=== PATIENT | female | born 1975 | race Caucasian/White ===

== ENCOUNTER 2020-09-03 08:33 | Outpatient (REF) | payer OTHER, SELFPAY ==
[2020-09-03 12:00] LABS: Hematocrit 38.4 % (37-47); Hemoglobin 12.4 g/dl (12.0-16.0); Mean Corpuscular HGB Conc 32.3 g/dl (31.0-35.0); Mean Corpuscular Hemoglobin 29.7 pg (27.0-33.0); Mean Corpuscular Volume 91.9 fL (80-98); Mean Platelet Volume 11.5 fL (9.4-12.3); Platelet Count 233 X10*3/uL (160-400); Red Blood Count 4.18 X10*6/uL (4.20-5.50); Red Cell Distribution Width 12.8 % (11.0-16.0); White Blood Count 4.5 X10*3/uL (4.8-10.8)
[2020-09-03 12:06] LABS: Glucose Urine UA NEG (NEG); Leukocyte Esterase Urine NEG (NEG); Nitrite Urine NEG (NEG); PH 6.5 (5.0-8.0); Urine Blood NEG (NEG); Urine Ketones NEG (NEG); Urine Protein NEG (NEG-TRACE)
[2020-09-03 12:09] LABS: Appearance Urine CLEAR; Color Urine YELLOW
[2020-09-03 12:39] LABS: Alanine Aminotransferase 13 U/L (0-31); Alkaline Phosphatase 47 U/L (39-117); Anion Gap 11 (12-20); Aspartate Amino Transferase 20 U/L (5-31); Bilirubin Total 0.6 mg/dL (0.0-1.0); Blood Urea Nitrogen 16 mg/dL (9-16); Calcium 8.9 mg/dL (8.4-10.2); Carbon Dioxide 26 mmol/L (22-29); Chloride 104 mmol/L (96-108); Cholesterol 228 mg/dL; Estimated Glomerular Filt Rate > 60; Glucose Fasting 93 mg/dL (60-99); HDL Cholesterol 76 mg/dL; LDL Cholesterol Calculated 136 mg/dl; Potassium 3.9 mmol/l (3.3-5.1); Sodium 137 mmol/L (135-145); Triglycerides 82 mg/dL
[2020-09-03 12:46] LABS: TSH reflex Free T4 0.66 mIU/mL (0.32-4.0)
[2020-09-05 08:23] LABS: Follicle Stimulating Hormone 6.3 mIU/mL; Prolactin 11.2 ng/mL
== END 2020-09-03 08:34 | disposition home or self-care (01) ==
LOC: HO.HMGCLDS 08:33
PROVIDERS: PCP Internal Medicine; Visit Provider Nurse Practitioner Adult Health
DX: N92.6 Irregular menstruation, unspecified (principal); R05 Cough; E78.2 Mixed hyperlipidemia
CPT/HCPCS: 36415; 80053; 80061; 81003; 83001; 84146; 84443; 85027

== ENCOUNTER 2021-10-16 13:20 | Outpatient (REF) | payer OTHER, SELFPAY ==
[2021-10-16 16:26] LABS: Hematocrit 37.7 % (37.0-47.0); Hemoglobin 12.2 g/dl (12.0-16.0); Mean Corpuscular HGB Conc 32.4 g/dl (31.0-35.0); Mean Corpuscular Hemoglobin 29.5 pg (27.0-33.0); Mean Corpuscular Volume 91.1 fL (80.0-98.0); Mean Platelet Volume 11.7 fL (9.4-12.3); Platelet Count 248 X10*3/uL (160-400); Red Blood Count 4.14 X10*6/uL (4.20-5.50); Red Cell Distribution Width 12.5 % (11.0-16.0); White Blood Count 5.1 X10*3/uL (4.8-10.8)
[2021-10-16 16:42] LABS: Appearance Urine CLEAR; Color Urine YELLOW; Glucose Urine UA NEG (NEG); Leukocyte Esterase Urine NEG (NEG); Nitrite Urine NEG (NEG); Urine Blood NEG (NEG); Urine Ketones 5 MG/DL (NEG); Urine Protein NEG (NEG-TRACE)
[2021-10-16 16:57] LABS: Alanine Aminotransferase 10 U/L (0-31); Albumin Level 4.4 g/dL (3.5-5.0); Alkaline Phosphatase 60 U/L (39-117); Anion Gap 12 (12-20); Aspartate Amino Transferase 21 U/L (5-31); Bilirubin Total 0.5 mg/dL (0.0-1.0); Blood Urea Nitrogen 17 mg/dL (9-16); Calcium 10.1 mg/dL (8.4-10.2); Carbon Dioxide 29 mmol/L (22-29); Chloride 103 mmol/L (96-108); Cholesterol 259 mg/dL; Estimated Glomerular Filt Rate > 60; Glucose Fasting 95 mg/dL (60-99); HDL Cholesterol 86 mg/dL; LDL Cholesterol Calculated 162 mg/dl; Potassium 4.3 mmol/L (3.3-5.1); Sodium 140 mmol/L (135-145); Total Protein 7.8 g/dL (6.5-8.0); Triglycerides 58 mg/dL
[2021-10-16 16:58] LABS: Bacteria Urine TRACE /LPF; RBC Urine 0-2 /HPF (0); Squamous Epithelial Cell Urine TRACE /LPF
[2021-10-16 16:59] LABS: WBC Urine 0-2 /HPF (0-4)
[2021-10-16 17:11] LABS: TSH reflex Free T4 0.59 uIU/mL (0.32-4.0)
== END 2021-10-16 13:21 | disposition home or self-care (01) ==
LOC: HO.HMGCLDS 13:20
PROVIDERS: PCP Internal Medicine; Visit Provider Internal Medicine
DX: Z00.00 Encounter for general adult medical examination without abnormal findings (principal)
CPT/HCPCS: 36415; 80053; 80061; 81001; 84443; 85027

== ENCOUNTER 2021-10-29 15:14 | Outpatient (REF) | payer OTHER, SELFPAY ==
--- NOTE | ~2021-10-29 | US_ITS ---
EXAMINATION: US THYROID CLINICAL INFORMATION: Nontoxic multinodular goiter. COMPARISON: CT soft tissue neck 02/18/2019. Ultrasound-guided thyroid biopsy dated 09/08/2018. Ultrasound soft tissue head/neck thyroid dated 03/23/2018. TECHNIQUE: Linear and curved transducer grayscale and color Doppler examination with attention to the region of the thyroid. FINDINGS: SIZE: Measurements of the thyroid lobes and nodules are given in sagittal, anteroposterior and transverse dimensions respectively. Right Thyroid Lobe: 6.1 x 2.0 x 2.2 cm, volume 14.0 mL. Previously 5.5 x 2.4 x 1.9 cm, volume 13.1 mL. Parenchyma: The gland echotexture is homogeneous. Thyroid vascularity is increased. Left Thyroid Lobe: 7.3 x 2.5 x 2.7 cm, volume 25.8 mL. Previously 5.9 x 2.5 x 2.9 cm, volume 22.3 mL. Parenchyma: The gland echotexture is homogeneous. Thyroid vascularity is increased. Isthmus: 0.7 cm in maximum AP dimension. Previously 0.6 cm. Estimated total number of nodules greater than or equal to 1 cm: 2. Security Developer nodules are described as follows: 1. Location: Right inferior/isthmus. Size: 3.0 x 1.6 x 2.4 cm, volume 6.07 mL. Previously: 2.7 x 1.7 x 2.2 cm, volume 5.28 mL. Nodule characteristics: Composition: Solid (2). Echogenicity: Isoechoic (1). Shape: Not taller than wide (0). Margins: Irregular (2). Echogenic Foci: None (0). ACR TI-RADS total points: 5 ACR TI-RADS category: 4 Significant change in size (>/= 20% in 2 dimensions and minimal increase of 2 mm or 50% or greater increase in volume): No Change in features: No Change in ACR TI-RADS risk category: No 2. Location: Left inferior/isthmus. Size: 3.9 x 2.0 x 2.8 cm, volume 11.4 mL. Previously: 3.4 x 1.7 x 2.2 cm, volume 6.65 mL. Nodule characteristics: Composition: Solid (2). Echogenicity: Isoechoic (1). Shape: Not taller than wide (0). Margins: Irregular (2). Echogenic Foci: None (0). ACR TI-RADS total points: 5 ACR TI-RADS category: 4 Significant change in size (>/= 20% in 2 dimensions and minimal increase of 2 mm or 50% or greater increase in volume): Yes Change in features: No Change in ACR TI-RADS risk category: No NODES: No lymphadenopathy is seen in the tissue surrounding the thyroid gland. US/US thyroid IMPRESSION: Enlarged hypervascular thyroid gland. There is interval increase in size in the left isthmus/lower pole nodule. The right isthmus/lower pole nodule does not appear appreciably changed. ACR TI-RADS RECOMMENDATION REFERENCE: Ultrasound-guided fine-needle aspiration, followup ultrasound, no further follow up. * TR1 (0 point) and TR 2 (2 points): No FNA or follow up * TR3 (3 points): FNA if more than or equal to 2.5 cm in maximum dimension, followup ultrasound in 1, 3 and 5 years if 1.5 to 2.4 cm in maximum dimension. * TR4 (4-6 points): FNA if more than or equal to 1.5 cm in maximum dimension, followup ultrasound in 1, 2, 3 and 5 years if 1 to 1.4 cm in maximum dimension. * TR5 (more than or equal to 7 points): FNA if more than or equal to 1 cm in maximum dimension, followup ultrasound every year for 5 years if 0.5 to 0.9 cm in maximum dimension. * TR3, TR4 or TR5 nodules that are below the size threshold for follow up receive no follow up.
== END 2021-10-29 15:15 | disposition home or self-care (01) ==
LOC: HO.HMGCX 15:14
PROVIDERS: PCP Internal Medicine; Visit Provider Internal Medicine
DX: E04.2 Nontoxic multinodular goiter (principal)
CPT/HCPCS: 76536

== ENCOUNTER → 2023-03-10 12:43 | Outpatient (BNVA) | payer OTHER, SELFPAY | PROVIDERS: PCP Internal Medicine; Visit Provider Internal Medicine Endocrinology, Diabetes & Metabolism ==

== ENCOUNTER 2023-03-16 14:15 | Outpatient (REF) | payer OTHER, SELFPAY ==
--- NOTE | ~2023-03-16 | US_ITS ---
EXAMINATION: US THYROID CLINICAL INFORMATION: Nontoxic multinodular goiter. COMPARISON: Ultrasound thyroid 10/29/2021 and 03/23/2018. CT soft tissue neck with contrast 02/02/2019. US-guided thyroid biopsy 09/08/2018 and 03/11/2017. TECHNIQUE: Linear transducer grayscale and color Doppler examination with attention to the region of the thyroid. FINDINGS: SIZE: Measurements of the thyroid lobes and nodules are given in sagittal, anteroposterior and transverse dimensions respectively. Right Thyroid Lobe: 6.2 x 2.0 x 2.4 cm, volume 15.6 mL. Previously 6.1 x 2.0 x 2.2 cm, volume 14.0 mL. Parenchyma: The gland echotexture is homogeneous. Thyroid vascularity is increased. Left Thyroid Lobe: 6.9 x 2.6 x 2.9 cm, volume 27.2 mL. Previously 7.3 x 2.5 x 2.7 cm, volume 25.8 mL. Parenchyma: The gland echotexture is homogeneous. Thyroid vascularity is increased. Isthmus: 1.1 cm in maximum AP dimension. Previously 0.7 cm. Estimated total number of nodules greater than or equal to 1 cm: 2. Electrical Wiring Lineman nodules are described as follows: 1. Location: Right isthmus. Size: 3.1 x 1.7 x 2.4 cm, volume 6.6 mL. Previously: 3.0 x 1.6 x 2.4 cm, volume 6.07 mL. Nodule characteristics: Composition: Solid (2). Echogenicity: Isoechoic (1). Shape: Not taller than wide (0). Margins: Irregular (2). Echogenic Foci: None (0). ACR TI-RADS total points: 5 Previous: 5 ACR TI-RADS category: 4 Previous: 4 Significant change in size (>/= 20% in 2 dimensions and minimal increase of 2 mm or 50% or greater increase in volume): Not Change in features: Not Change in ACR TI-RADS risk category: Not 2. Location: Left inferior. Size: 3.8 x 2.0 x 2.9 cm, volume 11.3 mL. Previously: 3.9 x 2.0 x 2.8 cm, volume 11.4 mL. Nodule characteristics: Composition: Solid (2). Echogenicity: Isoechoic (1). Shape: Not taller than wide (0). Margins: Irregular (2). Echogenic Foci: Macrocalcifications (1). ACR TI-RADS total points: 6 Previous: 5 ACR TI-RADS category: 4 Previous: 4 Significant change in size (>/= 20% in 2 dimensions and minimal increase of 2 mm or 50% or greater increase in volume): Not Change in features: Not Change in ACR TI-RADS risk category: Not NODES: No lymphadenopathy is seen in the tissue surrounding the thyroid gland. US/US thyroid IMPRESSION: Multinodular goiter. No significant interval change
== END 2023-03-16 14:16 | disposition home or self-care (01) ==
LOC: HO.HMGCX 14:15
PROVIDERS: PCP Internal Medicine; Visit Provider Internal Medicine
DX: E04.2 Nontoxic multinodular goiter (principal)
CPT/HCPCS: 76536

== ENCOUNTER 2023-05-10 06:18 | Outpatient (REF) | payer OTHER, SELFPAY ==
[2023-05-10 12:56] LABS: Free T4 (Free Thyroxine) 0.73 ng/dL (0.71-1.85); Thyroid Stimulating Hormone 1.04 uIU/mL (0.32-4.0)
== END 2023-05-10 06:19 | disposition home or self-care (01) ==
LOC: HO.HMGCLDS 06:18
PROVIDERS: PCP Internal Medicine; Visit Provider Internal Medicine Endocrinology, Diabetes & Metabolism
DX: E04.2 Nontoxic multinodular goiter (principal)
CPT/HCPCS: 36415; 84439; 84443

== ENCOUNTER 2023-08-05 13:31 | Outpatient (AMB) | payer OTHER, SELFPAY ==
[2023-08-05 14:01] VITALS: BP 134/70; PULSE 85; O2SAT 99; BMI 24.7
--- NOTE | 2023-08-05 14:01 | MHC.PC.OV ---
Vital Signs 08/05/23 14:01 Height 5 ft 2 in Weight 135 lb BMI 24.7 BP 134/70 Blood Pressure Location Lt brachial Position Sitting Pulse 85 Pulse Source Pulse Oximeter Pulse Oximetry (%) 99 Oxygen Delivery Method Room Air Intake Visit Reasons: Physical Intake Note: Pt is here today for PE. Allergies No Known Allergies [No Known Allergies*] Allergy (Unverified 08/05/23 14:04) Nickel Allergy (Unknown, Uncoded 08/05/23 14:04) itchy Medication List - Last Reconciled 08/05/23 by Jen Nevarez MD rizatriptan (Maxalt-TRAM OPERATOR) take 1 tab at onset of headache; if no relief may repeat 1 tab after at least 2 hrs; max = 3 tabs/24 hr PO sertraline 25 mg PO DAILY Tobacco use date assessed: 08/05/23 Dental Screening Dental Screen Date: 08/05/23 Did you have a dental visit in the last 12 months?: Yes Did you have a dental problem in the last 6 months where you did not have access to dental care?: No Was dental information given to patient?: Patient has dentist HPI Physical HPI Details Pt presents for PE. Pt c/o chronic bilateral hand pain and tingling sensation mainly in the middle fingers worse at night for 3 weeks. Pt tried acupuncture with some relief. 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 Patient denies any weakness in hand ultrasound technol. [facility] Medical History Hyperlipidemia Multiple thyroid nodules Migraine Normal pelvic exam Annual physical exam Surgical History No history of previous surgery Family History Mother Family history of thyroid problem Father Heart problem Sister Ming's disease Other Substance use disorder Social History Housing: House Patient Tobacco Use Status: Never used Tobacco e-Cigarette/Vaping Use: Never Used Current occupational status: employed Cognitive needs: No Hearing needs: No Vision needs: Yes Questionnaire Thrive Questionnaire Date Thrive assessed: 10/16/21 I am a: Patient What is your living situation today?: I choose not to answer this question Within the past 12 months, did the food you bought not last and you didn't have the money to get more?: I choose not to answer this question Within the past 12 months, did you worry whether your food would run out before you got money to buy more?: I choose not to answer this question Please select the resources that you would like help with: None AUDIT C Alcohol Use Questionnaire (AUDIT-C) 1. How often do you have a drink containing alcohol?: Never 3. How often do you have six or more drinks on one occasion?: Never Total Score: 0 LEONARDO-7 AMB Questionnaire LEONARDO-7 Date LEONARDO - 7 assessed: 10/16/21 Feeling nervous, anxious, or on edge: 0 = Not at all Not being able to stop or control worryin = Not at all Worrying too much about different things: 0 = Not at all Trouble relaxin = Not at all Being so restless that it is hard to sit still: 0 = Not at all Becoming easily annoyed or irritable: 0 = Not at all Feeling afraid as if something awful might happen: 0 = Not at all Total LEONARDO-7 score (0-4 normal; 5-9 mild; 10-14 moderate; 15-21 severe): 0 Source: Developed by Drs. Sanjeev Garcia, Luz Maria Alfred, Norbert Overton and colleagues, with an educational saumya from [employer]. Review of Systems Const All systems reviewed & are unremarkable except as noted in HPI and below Reports no additional complaints Eyes Reports no additional complaints ENT Reports no additional complaints Card Reports no additional complaints Resp Reports no additional complaints GI Reports no additional complaints Reports no additional complaints Physical exam (Primary Care) Vital Signs: Last Vital Signs Pulse 85 08/05/23 14:01 BP 134/70 08/05/23 14:01 Pulse Ox 99 08/05/23 14:01 Oxygen Delivery Method Room Air 08/05/23 14:01 BMI result Body Mass Index 24.7 Tobacco/Smoking Status: Tobacco use Status Tobacco use date assessed 08/05/23 08/05/23 14:08 Patient Tobacco Use Status Never used Tobacco 08/05/23 14:08 e-Cigarette/Vaping Use Never Used 08/05/23 14:08 Thrive Assessment: Date of Thrive Assessment Date Thrive assessed 10/16/21 08/05/23 14:08 Const General: no acute distress HENMT Head: Yes normal to inspection Ears: hearing grossly normal bilaterally General nose exam: Normal external nose present Mouth: Normal oral and palatal mucosa present Throat: Yes posterior oropharynx normal Eyes General: appearance normal, both eyes and all related structures Neck Neck: Yes no lymphadenopathy and Yes supple Resp Effort & Inspection: normal respiratory effort Auscultation: clear to auscultation bilaterally Cardio Rhythm: regular rhythm Heart sounds: S1 normal heart sound present and S2 normal heart sound present GI Inspection: Yes normal to inspection Palpation (GI): Soft to palpation Percussion: Yes normal to percussion Auscultation: normal bowel sounds Assessment and Plan Assessment & Plan (1) Bilateral carpal tunnel syndrome: Code(s): G56.03 - Carpal tunnel syndrome, bilateral upper limbs Plan: For bilateral hand and wrist pain x-rays will be obtained patient will be referred for EMG to evaluate for carpal tunnel. Meloxicam 50 mg for 10 days prescribed patient was advised to wear compression wrist support (2) Hyperlipidemia: Code(s): E78.5 - Hyperlipidemia, unspecified Plan: Low-cholesterol diet discussed, pt will return for fasting labs. (3) Annual physical exam: Code(s): Z00.00 - Encounter for general adult medical examination without abnormal findings Plan: Well-balanced diet regular physical activity discussed with the patient .she will schedule mammogram and is up-to-date with the Pap smear by medical billing service. Patient will be referred to GI for colonoscopy Orders: Orders Complete Blood Count Auto Diff Today E78.5 - Hyperlipidemia, unspecified, G56.03 - Carpal tunnel syndrome, bilateral upper limbs, Z00.00 - Encounter for general adult medical examination without abnormal findings Comprehensive [place]. Panel Fast Today E78.5 - Hyperlipidemia, unspecified, G56.03 - Carpal tunnel syndrome, bilateral upper limbs, Z00.00 - Encounter for general adult medical examination without abnormal findings Vitamin D 25-OH Total Today E78.5 - Hyperlipidemia, unspecified, G56.03 - Carpal tunnel syndrome, bilateral upper limbs, Z00.00 - Encounter for general adult medical examination without abnormal findings Vitamin B12 and Folate Today E78.5 - Hyperlipidemia, unspecified, G56.03 - Carpal tunnel syndrome, bilateral upper limbs, Z00.00 - Encounter for general adult medical examination without abnormal findings XR hand wrist LT Today G56.03 - Carpal tunnel syndrome, bilateral upper limbs Lipid Panel Today E78.5 - Hyperlipidemia, unspecified, G56.03 - Carpal tunnel syndrome, bilateral upper limbs, Z00.00 - Encounter for general adult medical examination without abnormal findings TSH reflex Free T4 Today E78.5 - Hyperlipidemia, unspecified, G56.03 - Carpal tunnel syndrome, bilateral upper limbs, Z00.00 - Encounter for general adult medical examination without abnormal findings NE nerve conduction velocity Today E78.5 - Hyperlipidemia, unspecified, G56.03 - Carpal tunnel syndrome, bilateral upper limbs, Z00.00 - Encounter for general adult medical examination without abnormal findings XR hand wrist RT Today G56.03 - Carpal tunnel syndrome, bilateral upper limbs Referrals Gastroenterology Referral Z00.00 - Encounter for general adult medical examination without abnormal findings Medications: New nystatin 1 appl topical BID 30 grams 4RF meloxicam 15 mg PO DAILY 30 tabs 0RF Refilled rizatriptan (Maxalt-TRAM OPERATOR) take 1 tab at onset of headache; if no relief may repeat 1 tab after at least 2 hrs; max = 3 tabs/24 hr PO 20 tabs 2RF sertraline 25 mg PO DAILY 90 tabs 3RF Coding Level of Care Code Est Pt Prev Care 40-64y(77839) Diagnoses Bilateral carpal tunnel syndrome G56.03 Hyperlipidemia E78.5 Annual physical exam Z00.00
== END 2023-08-05 15:15 | disposition home or self-care (01) ==
PROVIDERS: PCP Internal Medicine; Visit Provider Internal Medicine
DX: G56.03 Carpal tunnel syndrome, bilateral upper limbs (principal); E78.5 Hyperlipidemia, unspecified; Z00.00 Encounter for general adult medical examination without abnormal findings
CPT/HCPCS: 99396

== ENCOUNTER 2023-08-05 14:59 | Outpatient (REF) | payer OTHER, SELFPAY ==
--- NOTE | ~2023-08-05 | XR_ITS ---
EXAMINATION: XR HANDS, BILATERAL CLINICAL INFORMATION: Carpal tunnel syndrome bilateral upper lobes. COMPARISON: None available. TECHNIQUE: 3 views of each hand. FINDINGS: LEFT HAND: Moderate degenerative changes in the 1st carpometacarpal joint with joint space narrowing and hypertrophic change. Bone mineralization is normal. Alignment preserved. RIGHT HAND: Moderate degenerative changes in the 1st carpometacarpal joint with joint space narrowing and hypertrophic change. Bone mineralization is normal. Alignment preserved. Calcifications in the soft tissues at the dorsal distal aspects of the right 3rd and 4th middle phalanges. XR/XR hand wrist LT IMPRESSION: Moderate degenerative changes in the bilateral 1st carpometacarpal joints. Recommend followup imaging in 10-14 days if fracture is suspected.
--- NOTE | ~2023-08-05 | XR_ITS ---
EXAMINATION: XR HANDS, BILATERAL CLINICAL INFORMATION: Carpal tunnel syndrome bilateral upper lobes. COMPARISON: None available. TECHNIQUE: 3 views of each hand. FINDINGS: LEFT HAND: Moderate degenerative changes in the 1st carpometacarpal joint with joint space narrowing and hypertrophic change. Bone mineralization is normal. Alignment preserved. RIGHT HAND: Moderate degenerative changes in the 1st carpometacarpal joint with joint space narrowing and hypertrophic change. Bone mineralization is normal. Alignment preserved. Calcifications in the soft tissues at the dorsal distal aspects of the right 3rd and 4th middle phalanges. XR/XR hand wrist RT IMPRESSION: Moderate degenerative changes in the bilateral 1st carpometacarpal joints. Recommend followup imaging in 10-14 days if fracture is suspected.
== END 2023-08-05 15:00 | disposition home or self-care (01) ==
LOC: HO.HMGCX 14:59
PROVIDERS: PCP Internal Medicine; Visit Provider Internal Medicine
DX: G56.03 Carpal tunnel syndrome, bilateral upper limbs (principal)
CPT/HCPCS: 73110; 73130

== ENCOUNTER 2023-08-10 15:56 | Outpatient (AMB) | payer OTHER, SELFPAY ==
[2023-08-10 16:00] VITALS: BP 100/68; PULSE 71; BMI 25.1
--- NOTE | 2023-08-10 16:00 | A.OFFVIS_ITS ---
Intake Vital Signs 08/10/23 16:00 Height 5 ft 2 in Weight 137 lb 5.568 oz BMI 25.1 BP 100/68 Blood Pressure Location Lt brachial Position Sitting Pulse 71 Pulse Source Pulse Oximeter Intake Visit Reasons: f/u MNG Intake Note: Patient present for MNG follow up visit. 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 She has had previous biopsies of both right and left dominant thyroid nodules with benign cytology. Left nodule was biopsied twice with benign cytology. Patient denies any obstructive symptoms [facility] Medical History Hyperlipidemia Multiple thyroid nodules Migraine Normal pelvic exam Annual physical exam Surgical History No history of previous surgery Family History Mother Family history of thyroid problem Father Heart problem Sister Ming's disease Other Substance use disorder Social History Housing: House Patient Tobacco Use Status: Never used Tobacco e-Cigarette/Vaping Use: Never Used Current occupational status: employed Cognitive needs: No Hearing needs: No Vision needs: Yes Physical Exam Vital Signs: Last Vital Signs Pulse 71 08/10/23 16:00 BP 100/68 08/10/23 16:00 BMI result Body Mass Index 25.1 Const Other: Thyroid gland is large in size weighs about 40 g. There are bilateral thyroid nodules palpated which about 3 cm in diameter Assessment & Plan Assessment & Plan (1) Multiple thyroid nodules: Code(s): E04.2 - Nontoxic multinodular goiter Plan: This is a 47-year-old Chinese female with a history of multinodular goiter status post FNA of right thyroid nodule and left thyroid nodule x2 with benign cytology. A recent ultrasound showed no change in the size of the nodules. She appears to be clinically and biochemically euthyroid Plan is continued observation. Patient can return to the care of her primary care provider and repeat thyroid ultrasound should be done about 2-3 years time. She returned back to endocrinology is any change in this size or characteristics of the nodules Coding Level of Care Code Est Pt Level 3 (78804) Diagnoses Multiple thyroid nodules E04.2
== END 2023-08-10 16:36 | disposition home or self-care (01) ==
PROVIDERS: PCP Internal Medicine; Visit Provider Internal Medicine Endocrinology, Diabetes & Metabolism
DX: E04.2 Nontoxic multinodular goiter (principal)
CPT/HCPCS: 99213

== ENCOUNTER → 2023-08-10 15:56 | Outpatient (BNVA) | payer OTHER, SELFPAY | PROVIDERS: PCP Internal Medicine; Visit Provider Internal Medicine Endocrinology, Diabetes & Metabolism ==

== ENCOUNTER 2023-08-21 07:11 | Outpatient (REF) | payer OTHER, SELFPAY ==
[2023-08-21 11:07] LABS: MANUAL DIFF FLAG NO
[2023-08-21 11:13] LABS: Basophils Percent Auto 0.8 % (0-2); Eosinophils Absolute Auto 0.1 X10*3/uL (0.0-0.4); Eosinophils Percent Auto 2.4 % (0-4); Hematocrit 38.3 % (37.0-47.0); Hemoglobin 12.3 g/dl (12.0-16.0); Imm Gran Abs Auto 0.01 X10*3/uL (0.00-0.03); Imm Gran Pct Auto 0.3 % (0.0-0.4); Lymphocytes Absolute Auto 1.7 X10*3/uL (1.2-4.9); Lymphocytes Percent Auto 45.6 % (20-40); Mean Corpuscular HGB Conc 32.1 g/dl (31.0-35.0); Mean Corpuscular Hemoglobin 29.6 pg (27.0-33.0); Mean Corpuscular Volume 92.1 fL (80.0-98.0); Mean Platelet Volume 11.3 fL (9.4-12.3); Monocytes Absolute Auto 0.2 X10*3/uL (0.1-1.2); Monocytes Percent Auto 6.2 % (2-11); Neutrophils Absolute Auto 1.7 x10*3/uL (2.0-8.3); Neutrophils Percent Auto 44.7 % (45-73); Platelet Count 226 X10*3/uL (160-400); Red Blood Count 4.16 X10*6/uL (4.20-5.50); Red Cell Distribution Width 12.6 % (11.0-16.0); White Blood Count 3.7 X10*3/uL (4.8-10.8)
[2023-08-21 11:41] LABS: Alanine Aminotransferase 13 U/L (0-31); Albumin Level 4.2 g/dL (3.5-5.0); Alkaline Phosphatase 46 U/L (39-117); Anion Gap 10 (12-20); Aspartate Amino Transferase 20 U/L (5-31); Bilirubin Total 0.4 mg/dL (0.0-1.0); Blood Urea Nitrogen 22 mg/dL (9-16); Calcium 9.6 mg/dL (8.4-10.2); Carbon Dioxide 28 mmol/L (22-29); Chloride 105 mmol/L (96-108); Cholesterol 263 mg/dL (<200); Estimated Glomerular Filt Rate > 60; Glucose Fasting 87 mg/dL (60-99); HDL Cholesterol 79 mg/dL (>40); LDL Cholesterol Calculated 170 mg/dL (<100); Potassium 4.2 mmol/L (3.3-5.1); Sodium 139 mmol/L (135-145); Total Protein 7.4 g/dL (6.5-8.0); Triglycerides 71 mg/dL (<150)
[2023-08-21 11:57] LABS: Vitamin B12 252 pg/mL (200-900)
[2023-08-21 12:01] LABS: TSH reflex Free T4 0.68 uIU/mL (0.32-4.0); Vitamin D 25-OH Total 30.8 ng/mL (>30)
== END 2023-08-21 07:12 | disposition home or self-care (01) ==
LOC: HO.HMGCLDS 07:11
PROVIDERS: PCP Internal Medicine; Visit Provider Internal Medicine
DX: Z00.00 Encounter for general adult medical examination without abnormal findings (principal); E78.5 Hyperlipidemia, unspecified; G56.03 Carpal tunnel syndrome, bilateral upper limbs
CPT/HCPCS: 36415; 80053; 80061; 82306; 82607; 82746; 84443; 85025

== ENCOUNTER 2023-09-09 14:59 | Outpatient (REF) | payer OTHER, SELFPAY ==
--- NOTE | 2023-09-09 15:02 | EMG_ITS ---
Chief complaint: Hand numbness Reason for referral: Evaluate for Carpal Tunnel Syndrome Referred by: Dr. Nevarez Procedure done: Bilateral upper extremities NCS/EMG Precautions and/or limitations: Seen with dental equipment technician The limb temperature was monitored continuously and remained between 32-36 degrees C during the performance of the NCS. Nerve Conduction Studies Anti Sensory Summary Table ?Stim Site NR Onset (ms) Norm Onset (ms) Peak (ms) Norm Peak (ms) O-P Amp (?V) Norm O-P Amp Site1 Site2 Delta-0 (ms) Dist (cm) Deonte (m/s) Norm Deonte (m/s) Left Median Anti Sensory (2nd Digit) Wrist ? 4.3 5.7 <3.6 6.0 >10 Wrist 2nd Digit 4.3 14.0 33 Right Median Anti Sensory (2nd Digit) Wrist ? 4.8 6.0 <3.6 8.8 >10 Wrist 2nd Digit 4.8 14.0 29 Right Radial Anti Sensory (Thumb) Forearm ? 1.5 2.0 <3.1 28.0 Forearm Thumb 1.5 0.0 Left Ulnar Anti Sensory (5th Digit) Wrist ? 2.4 3.1 <3.7 39.7 >15.0 Wrist 5th Digit 2.4 14.0 58 Right Ulnar Anti Sensory (5th Digit) Wrist ? 2.4 3.2 <3.7 20.4 >15.0 Wrist 5th Digit 2.4 14.0 58 Motor Summary Table ?Stim Site NR Onset (ms) Norm Onset (ms) O-P Amp (mV) Norm O-P Amp iAmp (mV) Amp (1st) (%) Site1 Site2 Delta-0 (ms) Dist (cm) Deonte (m/s) Norm Deonte (m/s) Left Median Motor (Abd Poll Brev) Wrist ? 7.2 <3.9 9.0 >4.5 10.4 100.0 Elbow Wrist 3.2 17.0 53 >45 Elbow ? 10.4 10.0 11.7 111.1 Right Median Motor (Abd Poll Brev) Wrist ? 7.0 <3.9 12.3 >4.5 15.0 100.0 Elbow Wrist 3.6 19.0 53 >45 Elbow ? 10.6 12.4 15.2 100.8 Left Ulnar Motor (Abd Dig Minimi) Wrist ? 2.9 <3.0 11.2 >5 12.6 100.0 B Elbow Wrist 2.5 15.0 60 >45 B Elbow ? 5.4 9.4 11.0 83.9 A Elbow B Elbow 1.4 10.0 71 >45 A Elbow ? 6.8 10.3 12.0 92.0 Right Ulnar Motor (Abd Dig Minimi) Wrist ? 2.8 <3.0 12.0 >5 14.3 100.0 B Elbow Wrist 2.7 17.0 63 >45 B Elbow ? 5.5 11.5 14.0 95.8 A Elbow B Elbow 1.3 10.0 77 >45 A Elbow ? 6.8 11.4 14.0 95.0 EMG ?Side Muscle Nerve Root Ins Act Fibs Psw Amp Dur Poly Recrt Int Pat Comment Right 1stDorInt Ulnar C8-T1 Nml Nml Nml Nml Nml 0 Nml Complete Right FlexCarRad Median C6-7 Nml Nml Nml Nml Nml 0 Nml Complete Right Biceps Musculocut C5-6 Nml Nml Nml Nml Nml 0 Nml Complete Right Triceps Radial C6-7-8 Nml Nml Nml Nml Nml 0 Nml Complete Right Deltoid Axillary C5-6 Nml Nml Nml Nml Nml 0 Nml Complete Left 1stDorInt Ulnar C8-T1 Nml Nml Nml Nml Nml 0 Nml Complete Left FlexCarRad Median C6-7 Nml Nml Nml Nml Nml 0 Nml Complete Left Biceps Musculocut C5-6 Nml Nml Nml Nml Nml 0 Nml Complete Left Triceps Radial C6-7-8 Nml Nml Nml Nml Nml 0 Nml Complete Left Deltoid Axillary C5-6 Nml Nml Nml Nml Nml 0 Nml Complete FINDINGS: Bilateral median motor nerves showed prolonged distal latency, normal amplitude and normal conduction velocity. Bilateral median sensory nerves showed prolonged peak latency and small amplitude. All other nerves tested were within normal. Concentric needle EMG was performed in selected muscles of the bilateral upper extremities. Study did not reveal signs of electric abnormalities as shown in the table below. IMPRESSION: 1. This is an abnormal study. 2. There is electrodiagnostic evidence for bilateral moderate-severe median neuropathy at the wrist, consistent with carpal tunnel syndrome. 3. There is no electrodiagnostic evidence for ulnar neuropathy, brachial plexopathy, or cervical radiculopathy. Thank you for your kind referral. Soraida Castanon MD, MATEO Board Certified, [place] Board of Physical Medicine and Rehabilitation (ABPMR) Board Certified, [place] Board of Electrodiagnostic Medicine (ABEM) CODIN [id number] Higuera or [place] to discuss surgery to see Dr. Higuera or MARY to see BID
== END 2023-09-09 15:00 | disposition home or self-care (01) ==
LOC: HO.NEURO 14:59
PROVIDERS: PCP Internal Medicine; Visit Provider Internal Medicine
DX: G56.03 Carpal tunnel syndrome, bilateral upper limbs (principal)
CPT/HCPCS: 95886; 95911

== ENCOUNTER → 2023-09-09 15:02 | Outpatient (BNV) | payer OTHER, SELFPAY | PROVIDERS: PCP Internal Medicine; Visit Provider Physical Medicine & Rehabilitation | DX: G56.13 Other lesions of median nerve, bilateral upper limbs (principal); G56.03 Carpal tunnel syndrome, bilateral upper limbs | CPT/HCPCS: 95886; 95911 ==

== ENCOUNTER 2023-10-06 08:26 | Outpatient (REF) | payer OTHER, SELFPAY | END 2023-10-06 08:27 | disposition home or self-care (01) | LOC: HO.HMGCX 08:26 | PROVIDERS: PCP Internal Medicine; Visit Provider Internal Medicine | DX: R10.11 Right upper quadrant pain (principal) | CPT/HCPCS: 76700 ==

== ENCOUNTER 2023-10-11 13:35 | Outpatient (AMB) | payer OTHER, SELFPAY ==
--- NOTE | 2023-10-11 14:18 | A.OFFVIS_ITS ---
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 Alissa mendosa reports ongoing pain for more than 5 months. She states that her pain is worse at night. NO hx of PT. She states that her left hand is worse that the right. 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 The patient reports ongoing pain for 5 months, since 04/2023. She states the pain increases at night. She denies a history of physical therapy. She also states her left hand is worse then her right hand. [facility] Medical History Hyperlipidemia Multiple thyroid nodules Migraine Normal pelvic exam Annual physical exam Surgical History No history of previous surgery Family History Mother Family history of thyroid problem Father Heart problem Sister Ming's disease Other Substance use disorder Social History Housing: House Patient Tobacco Use Status: Never used Tobacco e-Cigarette/Vaping Use: Never Used Current occupational status: employed Cognitive needs: No Hearing needs: No Vision needs: Yes Review of Systems Const All systems reviewed & are unremarkable except as noted in HPI and below Physical Exam Vital Signs: BMI result Body Mass Index 25.1 Const General: cooperative, healthy appearing and no acute distress Resp Effort & Inspection: normal respiratory effort and able to speak in complete sentences Cardio Rate: regular rate Peripheral pulses: Peripheral pulses 2+ throughout GI Palpation (GI): Soft to palpation Skin Lesions: no lesions Rashes: no rashes Extrem Other: Bilateral hands: Normal to inspection. No ecchymosis, erythema, or edema. Reports dense numbness and tingling in all digits. Left is greater than right. Capillary refill is brisk. Radial pulse intact. Assessment & Plan Assessment & Plan (1) Bilateral carpal tunnel syndrome: Code(s): G56.03 - Carpal tunnel syndrome, bilateral upper limbs Plan Ms. Moreno is a 42-year-old right hand dominant female who presents in the office today, as a new patient, for an evaluation of bilateral upper extremity pain. The patient reports ongoing pain for 5 months, since 04/2023. She states the pain increases at night. She denies a history of physical therapy. She also states her left hand is worse then her right hand. The patient presents in the office today with her , who just underwent a quadruple bypass surgery and he has been out of work. She does want to pursue surgical intervention, but unfortunately at this time she has to continue working. 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 She was given my card as well as Dr. Higuera? card so she can reach out when she wants to pursue further surgical intervention, and I did educate the patient that the longer she has continued dense numbness and tingling, the higher the likelihood that that there may be permanent nerve damage. She understands and accepts. Follow up will be PRN, or sooner if needed. EMG of the bilateral upper extremity, obtained on 09/09/2023, revealed: 1. This is an abnormal study. 2. There is electrodiagnostic evidence for bilateral moderate-severe median neuropathy at the wrist, consistent with carpal tunnel syndrome. 3. There is no electrodiagnostic evidence for ulnar neuropathy, brachial plexopathy, or cervical radiculopathy. Patient Instructions: Scribed for Angelika Clemente PA-C by Kerry Mccord medical office receptionist assistant, on 10/11/2023 at 1:49 pm, EST. Coding Level of Care Code New Pt Level 4 (55272) Diagnoses Bilateral carpal tunnel syndrome G56.03
[2023-10-11 14:22] VITALS: BMI 25.1
== END 2023-10-11 14:44 | disposition home or self-care (01) ==
PROVIDERS: PCP Internal Medicine; Visit Provider Physician Assistant
DX: G56.03 Carpal tunnel syndrome, bilateral upper limbs (principal)
CPT/HCPCS: 99203

== ENCOUNTER → 2023-10-11 13:35 | Outpatient (BNVA) | payer OTHER, SELFPAY | PROVIDERS: PCP Internal Medicine; Visit Provider Physician Assistant ==

== ENCOUNTER 2023-12-21 13:33 | Outpatient (AMB) | payer OTHER, SELFPAY ==
--- NOTE | 2023-12-21 13:44 | A.OFFVIS_ITS ---
Intake Vital Signs 12/21/23 13:46 Height 5 ft 2 in Weight 139 lb BMI 25.4 BP 117/69 Blood Pressure Location Lt brachial Position Sitting Pulse 68 Intake Visit Reasons: pre colonoscopy screening Intake Note: Patient new consult for 1st pre colonoscopy screening. Patient denies any GI issues. 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 Accompanied by: Spouse Allergies No Known Allergies [No Known Allergies*] Allergy (Verified 12/21/23 13:43) Nickel Allergy (Unknown, Uncoded 08/05/23 14:04) itchy Medication List - Last Reconciled 12/21/23 by Marimar Cool PA-C meloxicam 15 mg PO DAILY nystatin 1 appl topical BID rizatriptan (Maxalt-FREIGHT REPRESENTATIVE) take 1 tab at onset of headache; if no relief may repeat 1 tab after at least 2 hrs; max = 3 tabs/24 hr PO sertraline 25 mg PO DAILY HPI HPI Comments History of Present Illness Details 48-year-old female referred for index sc reening colonoscopy She has no GI complaint Normal bowel pattern She has a good appetite- avoids dairy- Has hemorrhoids - occ. flare No respiratory or cardiac issues No nausea, vomiting, hematemesis, hematochezia fever chills PFSH Medical History Hyperlipidemia Multiple thyroid nodules Migraine Normal pelvic exam Annual physical exam Surgical History No history of previous surgery Family History Mother Family history of thyroid problem Father Heart problem Sister Ming's disease Other Substance use disorder Social History Housing: House Patient Tobacco Use Status: Never used Tobacco e-Cigarette/Vaping Use: Never Used Current occupational status: employed Cognitive needs: No Hearing needs: No Vision needs: Yes Review of Systems Const All systems reviewed & are unremarkable except as noted in HPI and below Card Denies chest pain and Denies dyspnea Resp Denies dyspnea GI Denies abdominal pain Physical Exam Vital Signs: Last Vital Signs Pulse 68 12/21/23 13:46 BP 117/69 12/21/23 13:46 BMI result Body Mass Index 25.4 Const General: cooperative, healthy appearing, comfortable and no acute distress Orientation/consciousness: patient oriented x3 Limitations: language barrier Resp Effort & Inspection: normal respiratory effort and able to speak in complete sentences Auscultation: clear to auscultation bilaterally and no wheezes Cardio Rate: regular rate Rhythm: regular rhythm Heart sounds: S1 normal heart sound present and S2 normal heart sound present GI Palpation (GI): Soft to palpation and nontender Auscultation: normal bowel sounds Skin General skin exam: no rashes or lesions noted Neuro General: patient oriented x3 Extrem General: Yes full ROM Psych Appearance: grossly normal and well kempt Mental Status: mental status grossly normal Speech and movement: Normal speech and movement present Affect: normal affect Attitude: cooperative Thought process: Normal thought process present Thought content: Normal thought content present Insight: Good insight present (Psych) Judgement: Good judgement present (Psych) Assessment & Plan Assessment & Plan (1) Encounter for screening colonoscopy: Comment: disc- proc, rare risks, need for escort, prep Code(s): Z12.11 - Encounter for screening for malignant neoplasm of colon Plan: index colonoscopy Plan colonoscopy- prefers female pls- MG prep interp pls Orders: Orders Colonoscopy - GI Use Only Today Z12.11 - Encounter for screening for malignant neoplasm of colon Medications: New bisacodyl (Dulcolax (bisacodyl)) Day before procedure @ 12 noon Take 4 tablets by mouth followed by large glass of water 20 mg (4 x 5 mg) PO ONCE PRN 4 tabs 0RF colonoscopy prep 1 day Z12.11 - Encounter for screening for malignant neoplasm of colon polyethylene glycol 3350 (Miralax) Take as directed by mouth the day before your procedure. 238 grams PO ONCE PRN 238 grams 0RF laxative effect 1 day Patient Instructions: Index screening colonoscopy- prefers female pls- MG prep, reviewed - lit given interp pls Coding Level of Care Code Est Pt Level 3 (40161) Diagnoses Encounter for screening colonoscopy Z12.11 Time Spent (min) 30 Comment thanhpMarni Stewart
[2023-12-21 13:46] VITALS: BP 117/69; PULSE 68; BMI 25.4
== END 2023-12-21 15:16 | disposition home or self-care (01) ==
PROVIDERS: PCP Internal Medicine; Visit Provider Physician Assistant
DX: Z12.11 Encounter for screening for malignant neoplasm of colon (principal); Z01.818 Encounter for other preprocedural examination
CPT/HCPCS: 99213

== ENCOUNTER → 2023-12-21 13:33 | Outpatient (BNVA) | payer OTHER, SELFPAY | PROVIDERS: PCP Internal Medicine; Visit Provider Physician Assistant ==

== ENCOUNTER 2024-01-05 10:06 | Outpatient (REF) | payer OTHER, SELFPAY | END 2024-01-05 10:07 | disposition home or self-care (01) | LOC: HO.HOSX 10:06 | PROVIDERS: Visit Provider Orthopaedic Surgery | DX: Z13.89 Encounter for screening for other disorder (principal) ==

== ENCOUNTER 2024-01-05 13:00 | Outpatient (AMB) | payer OTHER, SELFPAY ==
--- NOTE | 2024-01-05 13:17 | A.OFFVIS_ITS ---
Intake Intake Visit Reasons: ov- rt hand pain Intake Note: Collette is a 48 year old right hand dominant female who presents to the office today for b/l hand pain. Pt states her left hand is worse. She states she has pain in both hands at night and she states she gets numbness in her fingertips. Pt states she has tried hand braces that helped for a while but they no longer work for her. Accompanied by: Spouse Allergies No Known Allergies [No Known Allergies*] Allergy (Verified 01/05/24 13:17) Nickel Allergy (Unknown, Uncoded 01/05/24 13:17) itchy HPI ov- rt hand pain HPI Details Collette is a 48 year old right hand dominant primarily [place] speaking woman who presents with complaints of bilateral hand numbness. She is seen today with her , who helped act as a surface grinder. She complains of numbness in the thumb, index, and middle fingers bilaterally, L>R. She says this is intermittent, but daily, worse at night. 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 Cognitive needs: No Hearing needs: No Vision needs: Yes Review of Systems Const All systems reviewed & are unremarkable except as noted in HPI and below Physical Exam Const General: cooperative, healthy appearing and no acute distress Orientation/consciousness: patient oriented x3 HEENT Head: Yes normocephalic and Yes atraumatic Eyes EOM: EOMs intact bilaterally Resp Effort & Inspection: normal respiratory effort and able to speak in complete sentences Cardio Jugular venous distension: no JVD Skin General skin exam: turgor normal Rashes: no rashes Neuro General: patient oriented x3 Extrem Other: Evaluation of Bilateral Upper Extremity: The patient is alert, oriented, and in no acute distress Neuro: Normal sensation in the median nerve distribution bilaterally. Normal sensation in the ulnar nerve distribution bilaterally No thenar or intrinsic wasting Good APB muscle belly firing and good finger cross Vascular: Cap refill brisk ROM: She can make a fist and extend all her digits No locking or catching Skin: No lacerations or abrasions. General: No Ecchymosis. No Erythema or evidence of infection. Radiographs: 3 views of the bilateral hands from 08/05/23 were reviewed by me today in clinic. They show no fractures or dislocations. 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 This is an abnormal study. 2. There is electrodiagnostic evidence for bilateral moderate-severe median neuropathy at the wrist, consistent with carpal tunnel syndrome. 3. There is no electrodiagnostic evidence for ulnar neuropathy, brachial plexopathy, or cervical radiculopathy. Soraida Castanon MD, MATEO 09/09/23 Psych Appearance: grossly normal Affect: normal affect Attitude: cooperative Assessment & Plan Assessment & Plan (1) Carpal tunnel syndrome of right wrist: Code(s): G56.01 - Carpal tunnel syndrome, right upper limb (2) Carpal tunnel syndrome of left wrist: Code(s): G56.02 - Carpal tunnel syndrome, left upper limb Plan Assessment & Plan: 1. Left carpal tunnel syndrome, moderate-severe Symptoms intermittent, but daily, worse at night I educated her about this condition I discussed operative and non-operative treatment options The patient would like to proceed with surgery, beginning with her left hand The risks and benefits of operative treatment were discussed with the patient and the patient wishes to proceed with surgery. These risks include, but are not limited to risk of damage to blood vessels, nerves, tendons, infection, recurrence, incomplete relief of preoperative symptoms, persistent pain, possible need for further surgery and the risks associated with regional blocks and anesthesia. The plan is to take the patient to the operating room sometime in the next few weeks for the following procedures: 1. Left carpal tunnel release, under local All of the preoperative paperwork including the consent was reviewed today. All the patient's questions were answered. The patient understands that they will be contacted by our solar sales specialist soon to schedule this procedure. She would like to be placed on a cancellation list to have surgery sooner, if possible. She denies Diabetes, blood thinners, asthma, heart, lung, kidney issues 2. Right carpal tunnel syndrome, moderate-severe Symptoms intermittent, but daily, worse at night We will discuss treatment when her left hand recovers from surgery. Scribed for Marcelle Higuera MD by Junior Medeiros, medical secretary, on 01/05/24 at 1:35 PM, EST. Orders: Orders XR hand RT min 3V Today M79.641 - Pain in right hand Coding Level of Care Code Est Pt Level 4 (57839) Diagnoses Carpal tunnel syndrome of right wrist G56.01 Carpal tunnel syndrome of left wrist G56.02
== END 2024-01-05 14:05 | disposition home or self-care (01) ==
PROVIDERS: PCP Internal Medicine; Visit Provider Orthopaedic Surgery
DX: G56.03 Carpal tunnel syndrome, bilateral upper limbs (principal)
CPT/HCPCS: 99214

== ENCOUNTER 2024-02-03 07:54 | Day surgery (SDC) | payer OTHER, SELFPAY ==
[2024-02-03 09:35] VITALS: BP 133/73; PULSE 63; RESP 18; TEMP 36.7; O2SAT 100; BMI 24.7
--- NOTE | 2024-02-03 10:21 | MHC.SHP ---
Pre-Procedural Eval Section A - 24 Hr Update-Section A only Date of Service: 02/03/24 The patient is an INPATIENT: No Changes since office visit: No Cold of Flu in the past 2 weeks, No New Medical Problems, No Changes in Medication and No Patient answered all questions The patient has been examined within 24 hours of the surgical procedure. The History & Physical has been completed within 30 days and I have reviewed it.: Yes Section B - Complete if H&P > 30 days Chief Complaint: Carpal tunnel syndrome, left upper limb Allergies: Allergies Allergy/AdvReac Type Severity Reaction Status Date / Time No Known Allergies Allergy Verified 02/03/24 09:38 [No Known Allergies*] Nickel Allergy Unknown itchy Uncoded 02/03/24 09:38 Exam Exam Comment: Left carpal tunnel syndrome Plan Diagnosis/Plan: Unchanged I have reviewed the history and physical and performed a pertinent physical examination on my patient. No changes have occurred unless specified. Time Spent With Patient Time: Total time managing care of this patient today ____ minutes.
--- NOTE | 2024-02-03 10:21 | W.PM.OPN ---
Operative Note Operative Note Date of Service: 02/03/24 Narrative: Preop diagnosis: 1. Left Carpal tunnel syndrome Postop diagnosis: same Procedure: 1. Left Carpal tunnel release Surgeon: Marcelle Higuera MD Anesthesia: local block using 1% lidocaine with epinephrine Findings: Thickened transverse carpal ligament. EBL: Less than 5 mL Specimens: None Complications: None Disposition: Brought to recovery room in stable condition Plan: Follow-up for 10-14 days for wound check and suture removal Indications: The patient is 48 years old, with left carpal tunnel syndrome that has been unresponsive to nonoperative management. The risks and benefits of operative treatment including but not limited to risk of damage to blood vessels, nerves, tendons, infection, persistent pain, persistent symptoms, or possible need for additional surgery were discussed with the patient and the patient wishes to proceed with surgery. Procedure: Once consent was obtained a local block was performed using a combination of 1% lidocaine with epinephrine. The patient was then brought back to the operating suite and placed on the operative table in supine position. The left upper extremity was prepped and draped in a standard surgical fashion. Once assured that we had a good block, a 2.0 cm longitudinal incision was made centered over the carpal tunnel. The incision was made through the skin to the subcutaneous tissues using a #15 blade. Dissection was made down to the level of the transverse carpal ligament with care being taken to protect the palmar cutaneous nerve. Once the transverse carpal ligament was clearly visualized, a longitudinal incision was made in the transverse carpal ligament 1st using a #15 blade, then using tenotomy scissors under direct visualization. Care was taken to look for and protect the motor branch of the median nerve when seen in this area. Once satisfied with our carpal tunnel release the wound was copiously irrigated with normal saline and hemostasis was obtained with a brief period of local pressure. The skin edges were reapproximated with some 5.0 nylon suture material and a sterile dressing was applied. The patient appears to have tolerated the procedure well and with no complications. All digits were well vascularized at the conclusion of the case.
[2024-02-03 11:20] VITALS: BP 139/72; PULSE 66; RESP 20; O2SAT 99
== END 2024-02-03 12:09 | disposition home or self-care (01) ==
PROVIDERS: PCP Internal Medicine; Visit Provider Orthopaedic Surgery
PROC: (CPT 64721; principal; 2024-02-03 10:10)
DX: G56.02 Carpal tunnel syndrome, left upper limb (principal); G43.909 Migraine, unspecified, not intractable, without status migrainosus; R20.0 Anesthesia of skin; E78.5 Hyperlipidemia, unspecified; E04.2 Nontoxic multinodular goiter
CPT/HCPCS: 64721; J0171

== ENCOUNTER → 2024-02-03 07:54 | Outpatient (BNV) | payer OTHER, SELFPAY | PROVIDERS: PCP Internal Medicine; Visit Provider Orthopaedic Surgery | DX: G56.02 Carpal tunnel syndrome, left upper limb (principal) | CPT/HCPCS: 64721 ==

== ENCOUNTER 2024-02-16 12:56 | Outpatient (AMB) | payer OTHER, SELFPAY ==
--- NOTE | 2024-02-16 13:34 | MHC.OFFVIS ---
Vital Signs 02/16/24 13:35 Height 5 ft 2 in Weight 135 lb BMI 24.7 Intake Visit Reasons: PO LT CTR 02/03/24 AR Intake Note: Collette 48 yr old female presents today for her P/O visit for her left CTR from 02/03/[address] Higuera. STates CTS have resolved and is doing well? Sutures removed and Steri strips applied. Allergies No Known Allergies [No Known Allergies*] Allergy (Verified 02/16/24 13:38) Nickel Allergy (Unknown, Uncoded 02/16/24 13:38) itchy HPI HPI PO LT CTR 02/03/24 AR: Details: Collette Moreno is a 48 year old right hand dominant primarily Spanish speaking woman status post left carpal tunnel release. DOS: 02/03/2024 She denies numbness at night and is happy with the results of her surgery.. She would like to wait on the right carpal tunnel release due to needing help from [employer]. 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 Cognitive needs: No Hearing needs: No Vision needs: Yes Review of Systems Const All systems reviewed & are unremarkable except as noted in HPI and below Physical Exam Vital Signs: BMI result Body Mass Index 24.7 Const General: cooperative, healthy appearing and no acute distress Orientation/consciousness: patient oriented x3 HEENT Head: Yes normocephalic and Yes atraumatic Eyes EOM: EOMs intact bilaterally Resp Effort & Inspection: normal respiratory effort and able to speak in complete sentences Cardio Jugular venous distension: no JVD Skin General skin exam: turgor normal Rashes: no rashes Neuro General: patient oriented x3 Extrem Other: Evaluation of Right Upper Extremity: Patient was alert oriented and in no acute distress Her incision site is healing well with no erythema drainage or evidence of infection. Sutures removed and Steri-Strips applied. Normal sensation to the tips of all digits. She can make a fist and extend all of her digits. Vascular: Cap refill brisk. Assessment & Plan Assessment & Plan (1) Carpal tunnel syndrome of right wrist: Code(s): G56.01 - Carpal tunnel syndrome, right upper limb Category: Medical (2) Carpal tunnel syndrome of left wrist: Code(s): G56.02 - Carpal tunnel syndrome, left upper limb Category: Medical Plan Assessment & Plan: 1. Left carpal tunnel syndrome, moderate-severe DOS: 02/03/2024 With normal sensation postoperatively. The patient appears to be doing well post-operatively I educated her about the post-operative course I explained the signs and symptoms of infection I discussed activity modifications; she is to lift nothing heavier than a cellphone for the next two weeks She will perform gentle ROM exercises at home She should avoid any underwater activities for the next 5 days She should gently massage about the incision site to reduce the risk of hypersensitivity She can follow up prn 2. Right carpal tunnel syndrome, moderate-severe Symptoms intermittent, but daily, worse at night She would like left carpal tunnel to be done in the fall. Recommend for the patient to return in 05/2024 to further discuss the left carpal tunnel release. Scribed by Kerry Mccord medical receptionist medical assistant, for Dr. Marcelle Higuera on 02/16/2024 at 2:07 pm, EST. Coding Level of Care Code Global (21566) Diagnoses Carpal tunnel syndrome of right wrist G56.01 Carpal tunnel syndrome of left wrist G56.02
[2024-02-16 13:35] VITALS: BMI 24.7
== END 2024-02-16 14:04 | disposition home or self-care (01) ==
PROVIDERS: PCP Internal Medicine; Visit Provider Orthopaedic Surgery
DX: G56.03 Carpal tunnel syndrome, bilateral upper limbs (principal)
CPT/HCPCS: 99024

== ENCOUNTER → 2024-02-16 12:56 | Outpatient (BNVA) | payer OTHER, SELFPAY | PROVIDERS: PCP Internal Medicine; Visit Provider Orthopaedic Surgery ==

== ENCOUNTER 2024-03-08 14:49 | Outpatient (AMB) | payer OTHER, SELFPAY ==
--- NOTE | 2024-03-08 15:09 | MHC.OFFVIS ---
Intake Visit Reasons: Preop - Discuss RT CTR Intake Note: Collette is a 49 year old female presents today for her Preop visit for her right hand CTR. Hx of left CTR 02/03/24 AR. Consent signed and question have been addressed. Allergies No Known Allergies [No Known Allergies*] Allergy (Verified 03/08/24 15:09) Nickel Allergy (Unknown, Uncoded 03/08/24 15:09) itchy HPI HPI Preop - Discuss RT CTR: Details: Collette is a 48 year old right hand dominant primarily Pashto speaking woman who returns to discuss her right carpal tunnel syndrome She says she now has help from [facility] and would like to discuss surgery. She has intermittent but daily numbness in her right median nerve distribution. She is S/P left carpal tunnel release. 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 Normal sensation in the ulnar nerve distribution. No thenar or intrinsic wasting Good APB muscle belly firing and good finger cross Vascular: Cap refill brisk ROM: She can make a fist and extend all her digits No locking or catching Nerve Conduction Study: IMPRESSION: 1. This is an abnormal study. 2. There is electrodiagnostic evidence for bilateral moderate-severe median neuropathy at the wrist, consistent with carpal tunnel syndrome. 3. There is no electrodiagnostic evidence for ulnar neuropathy, brachial plexopathy, or cervical radiculopathy. Soraida Castanon MD, MATEO 09/09/23 Assessment & Plan Assessment & Plan (1) Carpal tunnel syndrome of right wrist: Code(s): G56.01 - Carpal tunnel syndrome, right upper limb Category: Medical (2) Carpal tunnel syndrome of left wrist: Code(s): G56.02 - Carpal tunnel syndrome, left upper limb Category: Medical Plan Assessment & Plan: 1. Right carpal tunnel syndrome, moderate-severe Symptoms intermittent, but daily, worse at night I educated her about this condition I discussed operative and non-operative treatment options The patient would like to proceed with surgery The risks and benefits of operative treatment were discussed with the patient and the patient wishes to proceed with surgery. These risks include, but are not limited to risk of damage to blood vessels, nerves, tendons, infection, recurrence, incomplete relief of preoperative symptoms, persistent pain, possible need for further surgery and the risks associated with regional blocks and anesthesia. The plan is to take the patient to the operating room sometime in the next few weeks for the following procedures: 1. Right carpal tunnel release, under local All of the preoperative paperwork including the consent was reviewed today. All the patient's questions were answered. The patient understands that they will be contacted by our outpatient scheduler soon to schedule this procedure. She denies Diabetes, blood thinners, asthma, heart, lung, kidney issues 2. Left carpal tunnel syndrome, S/P release DOS: 02/03/24 Pre-operative symptoms intermittent, but daily, worse at night Now with normal sensation Scribed for Marcelle Higuera MD by Junior Medeiros medical billing coder, on 03/08/24 at 3:35 PM, EST. Coding Level of Care Code Est Pt Level 4 (81436) Diagnoses Carpal tunnel syndrome of right wrist G56.01 Carpal tunnel syndrome of left wrist G56.02
== END 2024-03-08 16:10 | disposition home or self-care (01) ==
PROVIDERS: PCP Internal Medicine; Visit Provider Orthopaedic Surgery
DX: G56.03 Carpal tunnel syndrome, bilateral upper limbs (principal)
CPT/HCPCS: 99024

== ENCOUNTER → 2024-03-08 14:49 | Outpatient (BNVA) | payer OTHER, SELFPAY | PROVIDERS: PCP Internal Medicine; Visit Provider Orthopaedic Surgery ==

== ENCOUNTER 2024-05-15 11:14 | Day surgery (SDC) | payer OTHER, SELFPAY ==
[2024-05-15 12:06] VITALS: BMI 24.9
[2024-05-15 12:08] VITALS: BP 130/75; PULSE 66; RESP 16; TEMP 36.4; O2SAT 98
--- NOTE | 2024-05-15 15:25 | MHC.SHP ---
Pre-Procedural Eval Section A - 24 Hr Update-Section A only Date of Service: 05/15/24 The patient is an INPATIENT: No Changes since office visit: No Cold of Flu in the past 2 weeks, No New Medical Problems, No Changes in Medication and No Patient answered all questions The patient has been examined within 24 hours of the surgical procedure. The History & Physical has been completed within 30 days and I have reviewed it.: Yes Section B - Complete if H&P > 30 days Chief Complaint: Carpal tunnel syndrome, right upper limb Allergies: Allergies Allergy/AdvReac Type Severity Reaction Status Date / Time No Known Allergies Allergy Verified 03/08/24 15:09 [No Known Allergies*] Nickel Allergy Unknown itchy Uncoded 03/08/24 15:09 Plan Diagnosis/Plan: Unchanged I have reviewed the history and physical and performed a pertinent physical examination on my patient. No changes have occurred unless specified. Time Spent With Patient Time: Total time managing care of this patient today ____ minutes.
--- NOTE | 2024-05-15 15:26 | W.PM.OPN ---
Operative Note Operative Note Date of Service: 05/15/24 Narrative: Preop diagnosis: 1. Right Carpal tunnel syndrome Postop diagnosis: same Procedure: 1. Right Carpal tunnel release Surgeon: Marcelle Higuera MD Anesthesia: local block using 1% lidocaine with epinephrine Findings: Thickened transverse carpal ligament. EBL: Less than 5 mL Specimens: None Complications: None Disposition: Brought to recovery room in stable condition Plan: Follow-up for 10-14 days for wound check and suture removal Indications: The patient is 49 years old, with right carpal tunnel syndrome that has been unresponsive to nonoperative management. The risks and benefits of operative treatment including but not limited to risk of damage to blood vessels, nerves, tendons, infection, persistent pain, persistent symptoms, or possible need for additional surgery were discussed with the patient and the patient wishes to proceed with surgery. Procedure: Once consent was obtained a local block was performed using a combination of 1% lidocaine with epinephrine. The patient was then brought back to the operating suite and placed on the operative table in supine position. The right upper extremity was prepped and draped in a standard surgical fashion. Once assured that we had a good block, a 2.0 cm longitudinal incision was made centered over the carpal tunnel. The incision was made through the skin to the subcutaneous tissues using a #15 blade. Dissection was made down to the level of the transverse carpal ligament with care being taken to protect the palmar cutaneous nerve. Once the transverse carpal ligament was clearly visualized, a longitudinal incision was made in the transverse carpal ligament 1st using a #15 blade, then using tenotomy scissors under direct visualization. Care was taken to look for and protect the motor branch of the median nerve when seen in this area. Once satisfied with our carpal tunnel release the wound was copiously irrigated with normal saline and hemostasis was obtained with a brief period of local pressure. The skin edges were reapproximated with some 5.0 nylon suture material and a sterile dressing was applied. The patient appears to have tolerated the procedure well and with no complications. All digits were well vascularized at the conclusion of the case.
[2024-05-15 16:29] VITALS: BP 125/76; PULSE 60; RESP 18; TEMP 36.6; O2SAT 99
== END 2024-05-15 16:43 | disposition home or self-care (01) ==
PROVIDERS: PCP Internal Medicine; Visit Provider Orthopaedic Surgery
PROC: (CPT 64721; principal; 2024-05-15 14:20)
DX: G56.01 Carpal tunnel syndrome, right upper limb (principal); R20.0 Anesthesia of skin; E78.5 Hyperlipidemia, unspecified; E04.2 Nontoxic multinodular goiter; G43.909 Migraine, unspecified, not intractable, without status migrainosus; Z79.899 Other long term (current) drug therapy; Z98.890 Other specified postprocedural states
CPT/HCPCS: 64721; J0171

== ENCOUNTER → 2024-05-15 11:14 | Outpatient (BNV) | payer OTHER, SELFPAY | PROVIDERS: PCP Internal Medicine; Visit Provider Orthopaedic Surgery | DX: G56.01 Carpal tunnel syndrome, right upper limb (principal) | CPT/HCPCS: 64721 ==

== ENCOUNTER 2024-05-23 07:47 | Day surgery (SDC) | payer OTHER, SELFPAY ==
[2024-05-19 14:22] VITALS: BMI 25.4
--- NOTE | 2024-05-22 12:57 | P.CONAN_ITS ---
Documented by User: Michelle Regalado NP 05/22/24 12:57 HPI - Anesthesia Eval Consult details Narrative: 49yo F for Colonoscopy [facility] Active Problems Active Problems: All Active Problems Carpal tunnel syndrome of left wrist (Acute) Carpal tunnel syndrome of right wrist (Acute) Encounter for screening colonoscopy (Acute) Osteoarthritis of hands, bilateral (Acute) RUQ pain (Acute) Bilateral carpal tunnel syndrome (Acute) Hyperlipidemia (Acute) Multiple thyroid nodules (Acute) Migraine (Acute) Normal pelvic exam (Acute) Annual physical exam (Acute) Past Medical History Medical History (Updated 05/23/24 @ 08:47 by Maty Bustamante, JESSICA) History of menopause Osteoarthritis Hyperlipidemia Multiple thyroid nodules Migraine Normal pelvic exam Annual physical exam Family History Family History Mother Family history of thyroid problem Father Heart problem Sister Ming's disease Other Substance use disorder Surgical History Surgical History (Updated 05/19/24 @ 14:16 by Thelma Hutchinson RN) History of bilateral carpal tunnel release Social History Social History Housing: House Patient Tobacco Use Status: Never used Tobacco e-Cigarette/Vaping Use: Never Used Advance Directives: No Advance Directives Information Provided: Yes Current occupational status: employed 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 Cognitive needs: No Hearing needs: No Vision needs: Yes Meds Allergies Allergy/AdvReac Type Severity Reaction Status Date / Time nickel Allergy Intermediate Itching Verified 05/19/24 14:19 Home Medications ?Medication ?Instructions ?Recorded ?Confirmed ?Last Taken ?Type rizatriptan 10 mg tablet 10 mg PO Q2-4H PRN Migraine 05/19/24 05/19/24 Unknown History Headache Exam Height,Weight and Vital Signs: Height 5 ft 2 in Weight 63.049 kg Assessment and Plan Assessment Anesthesia Assessment: Chart Reviewed Documented by User: Liana Vang MD 05/23/24 08:54 [facility] Past Medical History Medical History (Updated 05/23/24 @ 08:47 by Maty Bustamante RN) History of menopause Osteoarthritis Hyperlipidemia Multiple thyroid nodules Migraine Normal pelvic exam Annual physical exam Family History Family History Mother Family history of thyroid problem Father Heart problem Sister Ming's disease Other Substance use disorder Family history of problems with anesthesia: No Surgical History Surgical History (Updated 05/19/24 @ 14:16 by Thelma Hutchinson RN) History of bilateral carpal tunnel release History of Problems with Anesthesia: No Social History Social History Housing: House Patient Tobacco Use Status: Never used Tobacco e-Cigarette/Vaping Use: Never Used Advance Directives: No Advance Directives Information Provided: Yes Current occupational status: employed 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 Cognitive needs: No Hearing needs: No Vision needs: Yes Meds Allergies Allergy/AdvReac Type Severity Reaction Status Date / Time nickel Allergy Intermediate Itching Verified 05/19/24 14:19 Home Medications ?Medication ?Instructions ?Recorded ?Confirmed ?Last Taken ?Type rizatriptan 10 mg tablet 10 mg PO Q2-4H PRN Migraine 05/19/24 05/19/24 Unknown History Headache Exam Airway Mallampati Class: II TM Dist: >3cm Neck ROM: Full Assessment and Plan Assessment Anesthesia Assessment: Anesthesia Plan Discussed Final Anesthetic Review Family History of Problems with Anesthesia: No History of Problems with Anesthesia: No NPO: Yes ASA Class: II Final Preanesthetic Review: No Changes in Pt Med Stat, Meds/Allgs Chart Reviewed, Consent Obtained/Reviewed and Anes Risks/Benef Reviewed Patient Risk: Low Procedure Risk: Low Anesthetic Plan Anesthetic Plan: TIVA Disposition: Standard PACU
--- NOTE | 2024-05-23 08:24 | MHC.SHP ---
Pre-Procedural Eval Section A - 24 Hr Update-Section A only Date of Service: 05/23/24 Section B - Complete if H&P > 30 days Chief Complaint: Encounter for screening for malignant neoplasm of Details of Present Illness: Hyperlipidemia Multiple thyroid nodules Migraine Normal pelvic exam Annual physical exam Surgical History No history of previous surgery Present Medications: see Short Stay Collaborative assessment Allergies: Allergies Allergy/AdvReac Type Severity Reaction Status Date / Time nickel Allergy Intermediate Itching Verified 05/19/24 14:19 Review of Systems Review of Systems Comment: Ten point ROS negative Exam Exam Comment: Gen appear: No acute distress HEENT: no icterus Chest: No overt resp distress Abd: soft, nontender, nondistended Psych: Stable affect, answering questions appropriately Neuro: A/Ox3 noted to move all extremities spontaneously Ext: no peripheral edema Plan Diagnosis/Plan: Unchanged I have reviewed the history and physical and performed a pertinent physical examination on my patient. No changes have occurred unless specified. Time Spent With Patient Time: Total time managing care of this patient today ____ minutes.
--- NOTE | 2024-05-23 08:30 | P.OPN-COLO_ITS ---
Colonoscopy Operative Note Operative Note Date of Service: 05/23/24 Narrative: Procedure: Colonoscopy Indication: Screening Endoscopist: Fiona Horvath MD Anesthesia Provider: Melisa Bustamante CRNA Anesthesia type: MAC Instrument: Olympus [id number]-H190L Consent: Indication, risks vs benefits, and alternatives were discussed with the patient who gave written informed consent to proceed. EKG, pulse, pulse oximetry and blood pressure were monitored throughout the procedure. Please see anesthesia flowsheet. Procedure: The patient was brought to the procedure room and placed in the left lateral decubitus position. IV medications were administered by the anesthesia provider in attendance. A digital rectal exam was performed which was normal. A distal attachment cap was affixed to the tip of the colonoscope which was then inserted through the anus and advanced through the colon to the cecum at 75 cm,and terminal ileum. Appendiceal orifice and ileocecal valve were identified. Mucosa was carefully examined under high definition white light as the instrument was slowly withdrawn in a retrograde panoramic fashion. Retroflexion was performed in rectum. The procedure was not difficult. There were no immediate obvious complications. The quality of the prep was BBPS: 3+2+3 = adequate Withdrawal time 7 minutes. Limitations: No limitations. Findings: Mucosa: Normal to cecum and terminal ileum. Protruding lesions: * Medium internal hemorrhoids without stigmata of recent bleeding. Impression: 1. Normal colon and terminal ileum mucosa 2. Internal hemorrhoids Recommendations: - Repeat colonoscopy for asymptomatic colorectal cancer screening in 10 years
[2024-05-23] MEDS: Lactated Ringers 1,000 ML 100 ML IVCONT (08:39)
[2024-05-23 08:45] VITALS: BP 127/98; PULSE 74; RESP 18; TEMP 36.8; O2SAT 100
--- NOTE | 2024-05-23 08:47 | PC.NURSE ---
IV on left - patient has dressing on right for recent ctr. patient states has not had a menstrual cycle x 2 years.
[2024-05-23 09:16] VITALS: BMI 24.7
[2024-05-23 09:42] VITALS: BP 97/63; PULSE 63; RESP 16; TEMP 36.1; O2SAT 99
[2024-05-23 09:57] VITALS: BP 117/69; PULSE 68; RESP 18; TEMP 36.6; O2SAT 99
== END 2024-05-23 10:25 | disposition home or self-care (01) ==
PROVIDERS: PCP Internal Medicine; Visit Provider Internal Medicine
PROC: 0DJD8ZZ Inspection of Lower Intestinal Tract, Via Natural or Artificial Opening Endoscopic (ICD-10-PCS; CPT 45378; principal; 2024-05-23 09:40)
DX: Z12.11 Encounter for screening for malignant neoplasm of colon (principal); K64.8 Other hemorrhoids; E78.5 Hyperlipidemia, unspecified; E04.1 Nontoxic single thyroid nodule; G43.909 Migraine, unspecified, not intractable, without status migrainosus; Z79.899 Other long term (current) drug therapy
CPT/HCPCS: 45378; J2704

== ENCOUNTER → 2024-05-23 07:47 | Outpatient (BNV) | payer OTHER, SELFPAY | PROVIDERS: PCP Internal Medicine; Visit Provider Internal Medicine | DX: Z12.11 Encounter for screening for malignant neoplasm of colon (principal); K64.8 Other hemorrhoids | CPT/HCPCS: 45378 ==

== ENCOUNTER 2024-05-30 12:32 | Outpatient (AMB) | payer OTHER, SELFPAY ==
[2024-05-30 12:33] VITALS: BMI 24.7
--- NOTE | 2024-05-30 12:33 | A.OFFVIS_ITS ---
Vital Signs 05/30/24 12:33 Height 5 ft 2 in Weight 135 lb BMI 24.7 Intake Visit Reasons: PO RT CTR 05/15/24 AR Intake Note: Collette is a 49 year old right hand dominant female who presents today post operatively s/p right CTR done 05/15/[address] Higuera. Patient reports no pain. Denies numbness, tingling, or locking on finger. Sutures removed in office today and steri strips applied. Allergies nickel Allergy (Intermediate, Verified 05/30/24 12:34) Itching HPI HPI PO RT CTR 05/15/24 AR: Details: Collette is a 48 year old right hand dominant primarily Bulgarian speaking woman who returns S/P right carpal tunnel release, DOS: 05/15/24 She says she is doing well and her sensation is improved and now normal. She is happy with the results of her surgery and says that she can now sleep through the night.. She is S/P left carpal tunnel release. 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 REPLACED BY [facility] Medical History (Updated 05/23/24 @ 08:47 by Maty Bustamante RN) History of menopause Osteoarthritis Hyperlipidemia Multiple thyroid nodules Migraine Normal pelvic exam Annual physical exam Surgical History (Updated 05/19/24 @ 14:16 by Thelma Hutchinson RN) History of bilateral carpal tunnel release Family History Mother Family history of thyroid problem Father Heart problem Sister Ming's disease Other Substance use disorder Social History Housing: House Patient Tobacco Use Status: Never used Tobacco e-Cigarette/Vaping Use: Never Used Current occupational status: employed 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 Sutures removed and Steri-Strips applied She can make a fist and extend all her digits No locking or catching Sensation is normal bilaterally and she is very happy. Cap refill is brisk Psych Appearance: grossly normal Affect: normal affect Attitude: cooperative Assessment & Plan Assessment & Plan (1) Carpal tunnel syndrome of right wrist: Code(s): G56.01 - Carpal tunnel syndrome, right upper limb Category: Medical (2) Carpal tunnel syndrome of left wrist: Code(s): G56.02 - Carpal tunnel syndrome, left upper limb Category: Medical Plan Assessment & Plan: 1. Right carpal tunnel syndrome, S/P release DOS: 05/15/24 Pre-operative symptoms intermittent, but daily, worse at night Now with normal sensation and good resolution of her nighttime symptoms The patient appears to be doing well post-operatively and is happy with the results of her surgery I educated her about the post-operative course I discussed activity modifications, she is to lift nothing heavier than a cellphone for the next two weeks She will perform gentle ROM exercises at home She should avoid any underwater activities for the next 5 days She should gently massage about the incision site to reduce the risk of hypersensitivity She can follow up prn 2. Left carpal tunnel syndrome, S/P release DOS: 02/03/24 Pre-operative symptoms intermittent, but daily, worse at night Now with normal sensation Scribed for Marcelle Higuera MD by chelsie Paz scribe, on 05/30/24 at 12:55 PM, EST. Scribe Plan - Not visible on output: Scribed for Marcelle Higuera MD by chelsie Paz scribe, on [ ] at [ ], EST. Coding Level of Care Code Global (09160) Diagnoses Carpal tunnel syndrome of right wrist G56.01 Carpal tunnel syndrome of left wrist G56.02
== END 2024-05-30 13:01 | disposition home or self-care (01) ==
PROVIDERS: PCP Internal Medicine; Visit Provider Orthopaedic Surgery
DX: G56.03 Carpal tunnel syndrome, bilateral upper limbs (principal)
CPT/HCPCS: 99024

== ENCOUNTER → 2024-05-30 12:32 | Outpatient (BNVA) | payer OTHER, SELFPAY | PROVIDERS: PCP Internal Medicine; Visit Provider Orthopaedic Surgery ==

== ENCOUNTER 2024-10-10 12:53 | Outpatient (AMB) | payer OTHER, SELFPAY ==
[2024-10-10 12:56] VITALS: BP 134/72; PULSE 91; O2SAT 100; BMI 24.5
--- NOTE | 2024-10-10 12:56 | MHC.PC.OV ---
Vital Signs 10/10/24 12:56 Height 5 ft 2 in Weight 134 lb BMI 24.5 BP 134/72 Blood Pressure Location Lt brachial Position Sitting Pulse 91 Pulse Source Pulse Oximeter Pulse Oximetry (%) 100 Oxygen Delivery Method Room Air Intake Visit Reasons: PE Intake Note: Pt is here today for PE. Pt has [employer] and had pap 2 years ago and will schedule appt for this year. Allergies nickel Allergy (Intermediate, Verified 10/10/24 13:12) Itching Medication List - Last Reconciled 10/10/24 by Jen Nevarez MD cetirizine (Zyrtec) 10 mg PO DAILY PRN nystatin 1 appl topical BID rizatriptan 10 mg PO Q2-4H PRN sertraline 25 mg PO DAILY Tobacco use date assessed: 10/10/24 Dental Screening Dental Screen Date: 10/10/24 Did you have a dental visit in the last 12 months?: Yes Did you have a dental problem in the last 6 months where you did not have access to dental care?: No Was dental information given to patient?: Patient has dentist HPI PE HPI Details Pt presents for PE. 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 1. Little interest or pleasure in doing things: not at all 2. Feeling down, depressed, or hopeless: not at all 3. Trouble falling or staying asleep, or sleeping too much: not at all 4. Feeling tired or having little energy: not at all 5. Poor appetite or overeating: not at all 6. Feeling bad about yourself - or that you are a failure or have let yourself or your family down: not at all 7. Trouble concentrating on things, such as reading the newspaper or watching television: not at all 8. Moving or speaking so slowly that other people could have noticed. Or the opposite - being so fidgety or restless that you have been moving around a lot more than usual: not at all 9. Thoughts that you would be better off or of hurting yourself in some way: not at all Total score: 0 Depression Screening Interpretation: Negative Depression Screening Done: Yes 96653 - PHQ-9 Billing: Yes Source: Developed by Drs. Sanjeev Garcia, Luz Maria Alfred, Norbert Overton and colleagues, with an educational saumya from [employer]. Thrive Questionnaire Date Thrive assessed: 10/10/24 I am a: Patient What is your living situation today?: I have a steady place to live Within the past 12 months, did the food you bought not last and you didn't have the money to get more?: Never true Within the past 12 months, did you worry whether your food would run out before you got money to buy more?: Never true Do you have trouble paying for medicines?: No Do you have trouble getting transportation to medical appointments?: No Do you have trouble paying your heating and electricity bill?: No Do you have trouble taking care of your child, family member or friend?: No Do you have trouble with day-to-day activities such as bathing, preparing meals, shopping, managing finances, etc.?: No Are you currently unemployed and looking for a job?: No Are you interested in more education?: No Please select the resources that you would like help with: None Currently or been in a relationship where the following occur: No concerns reported THRIVE Score: 0 AUDIT C Alcohol Use Questionnaire (AUDIT-C) 1. How often do you have a drink containing alcohol?: Never 3. How often do you have six or more drinks on one occasion?: Never Total Score: 0 LEONARDO-7 AMB Questionnaire LEONARDO-7 Date LEONARDO - 7 assessed: 10/10/24 Feeling nervous, anxious, or on edge: 0 = Not at all Not being able to stop or control worryin = Not at all Worrying too much about different things: 0 = Not at all Trouble relaxin = Not at all Being so restless that it is hard to sit still: 0 = Not at all Becoming easily annoyed or irritable: 0 = Not at all Feeling afraid as if something awful might happen: 0 = Not at all Total LEONARDO-7 score (0-4 normal; 5-9 mild; 10-14 moderate; 15-21 severe): 0 Source: Developed by Drs. Sanjeev Garcia, Luz Maria Alfred, Norbert Overton and colleagues, with an educational saumya from [employer]. LEONARDO-7 Assessment Billing LEONARDO-7 Assessment Tool: LEONARDO-7 Assessment 32259 Review of Systems Const All systems reviewed & are unremarkable except as noted in HPI and below Eyes Reports no additional complaints ENT Reports no additional complaints Resp Reports no additional complaints GI Reports no additional complaints Reports no additional complaints Musc Reports no additional complaints Neuro Reports no additional complaints Physical exam (Primary Care) Vital Signs: Last Vital Signs Pulse 91 10/10/24 12:56 BP 134/72 10/10/24 12:56 Pulse Ox 100 10/10/24 12:56 Oxygen Delivery Method Room Air 10/10/24 12:56 BMI result Body Mass Index 24.5 Tobacco/Smoking Status: Tobacco use Status Tobacco use date assessed 10/10/24 10/10/24 13:14 Patient Tobacco Use Status Never used Tobacco 10/10/24 13:14 e-Cigarette/Vaping Use Never Used 10/10/24 12:57 PHQ-9: PHQ-9 Score PHQ-9: Total score 0 10/10/24 13:20 Depression Screening Interpretation: Negative Thrive Assessment: Date of Thrive Assessment Date Thrive assessed 10/10/24 10/10/24 13:20 Currently or been in a relationship where the following occur: No concerns reported Const General: no acute distress HENMT Head: Yes normal to inspection Ears: hearing grossly normal bilaterally Face and sinus: Yes normal facial exam Mouth: Normal oral and palatal mucosa present Throat: Yes posterior oropharynx normal Eyes General: appearance normal, both eyes and all related structures Neck Neck: Yes supple Resp Effort & Inspection: normal respiratory effort Auscultation: clear to auscultation bilaterally Cardio Rhythm: regular rhythm Heart sounds: S1 normal heart sound present and S2 normal heart sound present GI Inspection: Yes normal to inspection Palpation (GI): Soft to palpation Percussion: Yes normal to percussion Auscultation: normal bowel sounds Coding Level of Care Code Est Pt Prev Care 40-64y(21377) Diagnoses Hx of colonoscopy Z98.890 Annual physical exam Z00.00 Hyperlipidemia E78.5 Multiple thyroid nodules E04.2 Additional Codes LEONARDO-7 Assessment Billing - LEONARDO-7 Assessment Tool: LEONARDO-7 Assessment 70254 ([id number]) PHQ-9 - 63529 - PHQ-9 Billing: Yes ([id number]) Assessment & Plan Assessment & Plan (1) Hx of colonoscopy: Comment: 05/2024 negative, Dr. Horvath Code(s): Z98.890 - Other specified postprocedural states Category: Surgical Plan: negative (2) Annual physical exam: Code(s): Z00.00 - Encounter for general adult medical examination without abnormal findings Category: Medical Plan: Well-balanced diet regular exercise discussed with the patient. 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 Panel Fast Today E04.2 - Nontoxic multinodular goiter, E78.5 - Hyperlipidemia, unspecified, Z00.00 - Encounter for general adult medical examination without abnormal findings Complete Blood Count Auto Diff Today E04.2 - Nontoxic multinodular goiter, E78.5 - Hyperlipidemia, unspecified, Z00.00 - Encounter for general adult medical examination without abnormal findings TSH reflex Free T4 Today E04.2 - Nontoxic multinodular goiter, E78.5 - Hyperlipidemia, unspecified, Z00.00 - Encounter for general adult medical examination without abnormal findings Vitamin D 25-OH Total Today E04.2 - Nontoxic multinodular goiter, E78.5 - Hyperlipidemia, unspecified, Z00.00 - Encounter for general adult medical examination without abnormal findings Lipid Panel Today E04.2 - Nontoxic multinodular goiter, E78.5 - Hyperlipidemia, unspecified, Z00.00 - Encounter for general adult medical examination without abnormal findings UA w Microscopic Today E04.2 - Nontoxic multinodular goiter, E78.5 - Hyperlipidemia, unspecified, Z00.00 - Encounter for general adult medical examination without abnormal findings MM screening mammo BI Today E04.2 - Nontoxic multinodular goiter, E78.5 - Hyperlipidemia, unspecified, Z00.00 - Encounter for general adult medical examination without abnormal findings, Z12.31 - Encounter for screening mammogram for malignant neoplasm of breast Medications: New rizatriptan do not exceed 3 doses per 24 hrs 10 mg PO Q2-4H PRN 10 tabs 1RF Migraine Headache nystatin-triamcinolone 100,000-0.1 unit/g-% 1 appl topical DAILY 30 grams 1RF Refilled sertraline 25 mg PO DAILY 90 tabs 3RF
== END 2024-10-10 13:42 | disposition home or self-care (01) ==
PROVIDERS: PCP Internal Medicine; Visit Provider Internal Medicine
DX: Z98.890 Other specified postprocedural states (principal); Z00.00 Encounter for general adult medical examination without abnormal findings; E78.5 Hyperlipidemia, unspecified; E04.2 Nontoxic multinodular goiter

== ENCOUNTER → 2024-10-10 12:53 | Outpatient (BNVA) | payer OTHER, SELFPAY | PROVIDERS: PCP Internal Medicine; Visit Provider Internal Medicine | DX: Z00.00 Encounter for general adult medical examination without abnormal findings (principal); E78.5 Hyperlipidemia, unspecified; E04.2 Nontoxic multinodular goiter | CPT/HCPCS: 96127 ==

== ENCOUNTER 2024-10-30 14:29 | Outpatient (REF) | payer OTHER, SELFPAY | END 2024-10-30 14:30 | disposition home or self-care (01) | LOC: HO.MAMMO 14:29 | PROVIDERS: PCP Internal Medicine; Visit Provider Internal Medicine | DX: Z12.31 Encounter for screening mammogram for malignant neoplasm of breast (principal) | CPT/HCPCS: 77063; 77067 ==

== ENCOUNTER → 2024-10-30 14:45 | Outpatient (BNV) | payer OTHER, SELFPAY | PROVIDERS: PCP Internal Medicine; Visit Provider Internal Medicine | DX: Z12.31 Encounter for screening mammogram for malignant neoplasm of breast (principal) | CPT/HCPCS: 77063; 77067 ==

== ENCOUNTER 2024-12-16 07:06 | Outpatient (REF) | payer OTHER, SELFPAY ==
[2024-12-16 11:21] LABS: MANUAL DIFF FLAG NO
[2024-12-16 11:21] LABS: Appearance Urine Cloudy; Color Urine Yellow; Glucose Urine UA Negative (Negative); Leukocyte Esterase Urine Moderate (2+) (Negative); Nitrite Urine Negative (Negative); PH 5.5 (5.0-9.0); UMIC TRIGGER UA YES; Urine Blood Negative (Negative); Urine Ketones Negative (Negative); Urine Protein Negative (Neg-Trace)
[2024-12-16 11:29] LABS: Eosinophils Absolute Auto 0.1 X10*3/uL (0.0-0.4); Eosinophils Percent Auto 1.4 % (0-4); Hematocrit 37.4 % (37.0-47.0); Hemoglobin 12.3 g/dl (12.0-16.0); Imm Gran Abs Auto 0.01 X10*3/uL (0.00-0.03); Imm Gran Pct Auto 0.2 % (0.0-0.4); Lymphocytes Absolute Auto 1.9 X10*3/uL (1.2-4.9); Lymphocytes Percent Auto 44.8 % (20-40); Mean Corpuscular HGB Conc 32.9 g/dl (31.0-35.0); Mean Corpuscular Hemoglobin 29.4 pg (27.0-33.0); Mean Corpuscular Volume 89.3 fL (80.0-98.0); Mean Platelet Volume 11.5 fL (9.4-12.3); Monocytes Absolute Auto 0.4 X10*3/uL (0.1-1.2); Monocytes Percent Auto 8.6 % (2-11); Neutrophils Absolute Auto 1.9 x10*3/uL (2.0-8.3); Platelet Count 214 X10*3/uL (160-400); Red Blood Count 4.19 X10*6/uL (4.20-5.50); Red Cell Distribution Width 12.8 % (11.0-16.0); White Blood Count 4.2 X10*3/uL (4.8-10.8)
[2024-12-16 11:36] LABS: Bacteria Urine None Seen (None Seen); Hyaline Casts Urine 0-2 /LPF (0-2); RBC Urine 0-2 /HPF (0-2); Squamous Epithelial Cell Urine 0-2 /HPF (0-2); WBC Urine 0-5 /HPF (0-5)
[2024-12-16 12:02] LABS: Alanine Aminotransferase 26 U/L (0-31); Albumin Level 4.1 g/dL (3.5-5.0); Alkaline Phosphatase 53 U/L (39-117); Anion Gap 9 (12-20); Aspartate Amino Transferase 29 U/L (5-31); Bilirubin Total 0.4 mg/dL (0.0-1.0); Blood Urea Nitrogen 19 mg/dL (9-16); Calcium 9.5 mg/dL (8.4-10.2); Carbon Dioxide 28 mmol/L (22-29); Chloride 107 mmol/L (96-108); Cholesterol 254 mg/dL (<200); Estimated Glomerular Filt Rate > 60; Glucose Fasting 91 mg/dL (60-99); HDL Cholesterol 86 mg/dL (>40); LDL Cholesterol Calculated 158 mg/dL (<100); Potassium 4.2 mmol/L (3.3-5.1); Sodium 140 mmol/L (135-145); Total Protein 7.6 g/dL (6.5-8.0); Triglycerides 54 mg/dL (<150)
[2024-12-16 12:19] LABS: TSH reflex Free T4 0.68 uIU/mL (0.32-4.0); Vitamin D 25-OH Total 38.9 ng/mL (>30)
== END 2024-12-16 07:07 | disposition home or self-care (01) ==
LOC: HO.HMGCLDS 07:06
PROVIDERS: PCP Internal Medicine; Visit Provider Internal Medicine
DX: Z00.00 Encounter for general adult medical examination without abnormal findings (principal); E78.5 Hyperlipidemia, unspecified; E04.2 Nontoxic multinodular goiter
CPT/HCPCS: 36415; 80053; 80061; 81001; 82306; 84443; 85025

== ENCOUNTER 2024-12-27 13:48 | Outpatient (REF) | payer OTHER, SELFPAY ==
--- NOTE | ~2024-12-27 | MM_ITS ---
EXAMINATION: MM DIAGNOSTIC DIGITAL BREAST TOMOSYNTHESIS, LEFT Limited left breast ultrasound. CLINICAL INFORMATION: Call back from baseline screening for focal asymmetry in the upper outer left breast. COMPARISON: Mammography: Baseline mammogram October 30, 2024. TECHNIQUE: Digital breast tomosynthesis is performed in both the craniocaudal and mediolateral oblique views along with computer-aided detection (CAD). Synthesized 2D images are generated from the tomosynthesis. FINDINGS: The breasts are heterogeneously dense, which may obscure small masses (ACR BI-RADS breast composition Category c). Focal asymmetry in the upper outer breast persists on additional imaging projections. No suspicious calcifications or other abnormal findings. Targeted color Doppler ultrasound scanning in the upper outer quadrant demonstrates multiple hypoechoic solid masses versus complicated cysts At 2:00 3 cm from the nipple there is a hypoechoic oval circumscribed solid mass versus complicated cyst measuring 12 x 10 x 4 mm. 3:00 3 cm from nipple there is a hypoechoic oval circumscribed solid mass versus complicated cyst measuring 6 x 4 x 11 mm. At 3:00 6 cm from nipple there are 2 adjacent hypoechoic circumscribed solid masses versus complicated cyst measuring 13 x 10 x 9 mm. There is a normal-appearing intramammary lymph node at 3:00 6 cm from nipple. MM/MM tomosynthesis added views L IMPRESSION: Multiple solid masses versus complicated cysts with circumscribed oval margins with morphology consistent of fibroadenomas versus complicated cyst. Recommend 6 month follow-up for further evaluation of stability. ASSESSMENT: BI-RADS BI-RADS 3 - Probably benign finding(s) - 6 month follow-up suggested RECOMMENDATION: 6 Month F/U Results were provided to the patient at time of visit by the technologist. This patient's information was entered into a reminder system with a target due date for their next mammogram. Electronically signed by: Hilary Graham DO 12/27/2024 02:53 PM EDT
== END 2024-12-27 13:49 | disposition home or self-care (01) ==
LOC: HO.MAMMO 13:48
PROVIDERS: PCP Internal Medicine; Visit Provider Internal Medicine
DX: N64.89 Other specified disorders of breast (principal)
CPT/HCPCS: 76642; 77061; 77065

== ENCOUNTER → 2024-12-27 14:00 | Outpatient (BNV) | payer OTHER, SELFPAY | PROVIDERS: PCP Internal Medicine; Visit Provider Internal Medicine | DX: N64.89 Other specified disorders of breast (principal) | CPT/HCPCS: 76642; 77061; 77065 ==

== ENCOUNTER 2025-07-19 14:01 | Outpatient (REF) | payer OTHER, SELFPAY ==
--- NOTE | ~2025-07-19 | US_ITS ---
EXAMINATION: US DIAGNOSTIC ULTRASOUND BREAST, LEFT CLINICAL INFORMATION: 6 month follow-up for bilateral solid masses versus complicated cysts versus lymph node on ultrasound.. COMPARISON: Comparison is made with relevant prior imaging. TECHNIQUE: Ultrasound of the breast is performed with real-time diaz scale imaging and color Doppler. FINDINGS: Targeted color Doppler ultrasound scanning in the left breast at 2:00 2 7 m from nipple demonstrates a hypoechoic oval circumscribed solid mass versus complicated cyst versus lymph node measuring 11 x 9 x 5 mm not significantly changed from prior. At 3:00 3 cm from nipple there is a 5 x 6 x 3 mm hypoechoic oval solid mass versus complicated cyst this is decreased in size from prior. At 3:00 6 cm from nipple there are 2 adjacent hypoechoic solid masses versus complicated cysts versus lymph nodes measuring 13 x 8 x 3 mm and 9 x 5 x 8 mm overall not significantly changed from prior. Results are discussed with the patient at time of visit. US/US Breast LT Limited Mamm Only IMPRESSION: Left breast solid masses versus complicated cyst at 2:00 2 cm from the nipple 3:00 3 cm from nipple and 3:00 6 cm from nipple. Recommend 6 month follow-up ultrasound to the patient will be due for bilateral mammography to demonstrate 1 year stability. ASSESSMENT: BI-RADS 3: Probably Benign RECOMMENDATION: Diagnostic mammography and ultrasound in 6 months. This patient's information was entered into a reminder system with a target due date for their next mammogram. Electronically signed by: Hilary Graham DO 07/19/2025 02:50 PM EDT
== END 2025-07-19 14:02 | disposition home or self-care (01) ==
LOC: HO.MAMMO 14:01
PROVIDERS: PCP Internal Medicine; Visit Provider Internal Medicine
DX: R92.2 Inconclusive mammogram (principal)
CPT/HCPCS: 76642

== ENCOUNTER → 2025-07-19 14:30 | Outpatient (BNV) | payer OTHER, SELFPAY | PROVIDERS: PCP Internal Medicine; Visit Provider Internal Medicine | DX: R92.8 Other abnormal and inconclusive findings on diagnostic imaging of breast (principal) | CPT/HCPCS: 76642 ==